=== PATIENT | female | born 1995 | race Asian ===

== ENCOUNTER 2017-06-28 09:59 | Inpatient (IN) | payer OTHER ==
[~2017-06-28] VITALS: Ht 152.4 cm; Wt 43.2 kg
[2017-06-28] MEDS ORDERED: GI COCKTAIL PO STA (11:08)
[2017-06-28] MEDS ORDERED: SUCRALFATE 1 GM TAB PO STA (11:08)
[2017-06-28] MEDS ORDERED: ONDANSETRON INJ 2 MG/ML 2 ML VIAL IV STA (11:08)
[2017-06-28] MEDS ORDERED: FAMOTIDINE 20 MG TAB PO STA (11:08)
[2017-06-28] MEDS ORDERED: HYDROmorphone INJ 0.5 MG/0.5 ML SYR IV STA ×3 (11:08→15:02)
[2017-06-28] MEDS ORDERED: ALUMINUM/MAGNESIUM SUSP 30 ML UDC ONE (11:20)
[2017-06-28] MEDS ORDERED: LIDOCAINE HCL 2% VISC SOLN 20 ML UDC ONE (11:20)
[2017-06-28 11:43] LABS: BASO % 0.1 %; BASO ABS # 0.02 K/uL (0-0.2); HEMOGLOBIN 14.8 g/dL (12.0-16.0); IG# 0.08 K/uL (0.00-0.02); LYMPH % 2.8 %; LYMPH ABS # 0.56 K/uL (1.2-3.4); MEAN CELL VOLUME 91.5 fL (80-100); MEAN CORPUSCULAR HEMOGLOBIN 32.2 pg (25-34); MEAN CORPUSCULAR HGB CONC 35.2 g/dl (32-36); MEAN PLATELET VOLUME 8.6 fL (7.4-10.4); MONO % 3.7 %; MONO ABS # 0.73 K/uL (0.11-0.59); NEUT ABS # 18.33 K/uL (1.4-6.5); PLATELET COUNT 399 K/uL (130-400); RED CELL DISTRIBUTION WIDTH CV 12.1 % (11.5-14.5); RED CELL DISTRIBUTION WIDTH SD 40.5 fL (36.4-46.3); WHITE BLOOD COUNT 19.72 K/uL (4.8-10.8)
--- NOTE | 2017-06-28 11:53 | EMERGENCY ROOM VISIT NOTE ---
History Report prepared by Veronica: Irma Otero Under the Supervision of: Dr. Ge Marmolejo M.D. First contact with patient: 11:01 Chief Complaint: VOMITING Stated Complaint: VOMITING, STOMACHACHE Nursing Triage Summary: Vomiting since 0300 this Am. History of Present Illness The patient is a 21 year old female who presents to the Emergency Room with complaints of worsening upper quadrant abdominal pain that began at 0300 today, almost 8 hours ago. The patient states that she has been nauseous and vomiting, noting there was no blood in her vomit. She denies having diarrhea or any chance of or having attained a tampon. The patient reports that she is currently on her menstrual period. Source of History: patient Onset: 0300, almost 8 hours ago Position: abdomen (upper quadrant ) Quality: other (upper quadrant abdominal pain) Timing: worsening Associated Symptoms: + nausea, + vomiting Review of Systems See HPI for pertinent positives & negatives. A total of 10 systems reviewed and were otherwise negative. Past Medical & Surgical Medical Problems: (1) No Known Active Medical Problems (2) Post-op pain Family History Patient reports no known family medical history. No pertinent family history. Social History Smoking Status: Never Smoker Smokeless Tobacco Use: No Alcohol Use: none Drug Use: none Marital Status: single Housing Status: lives with roommate Occupation Status: student Current/Historical Medications No Active Prescriptions or Reported Meds Allergies Coded Allergies: Shellfish (Unverified Allergy, Unknown, , 06/28/17) Physical Exam Vital Signs Date Time Temp Pulse Resp B/P (MAP) Pulse Ox O2 Delivery O2 Flow Rate FiO2 06/28/17 17:05 36.7 95 16 105/67 (80) 100 Room Air 06/28/17 17:02 36.9 88 20 112/69 99 06/28/17 16:40 112/69 06/28/17 16:35 88 20 99 06/28/17 16:05 101 14 96 06/28/17 15:49 106/69 06/28/17 15:05 69 16 99 06/28/17 14:40 97/57 06/28/17 14:35 77 17 100 06/28/17 14:05 69 12 99 06/28/17 14:00 74 21 99 06/28/17 13:30 69 13 97 06/28/17 13:17 86/60 06/28/17 13:00 73 16 99 06/28/17 12:53 69 06/28/17 12:19 70 16 102/64 100 Room Air 06/28/17 10:15 36.9 72 20 88/59 100 Room Air Physical Exam GENERAL: Patient is a healthy-appearing well-nourished female HEAD: Normocephalic atraumatic EYES: Ocular movements intact pupils equal and react to light OROPHARYNX mucous membranes are moist no exudates present no erythema or edema present NECK: Supple no nuchal rigidity CHEST: Good equal expansion LUNGS: Clear and equal to auscultation CARDIAC: Normal S1 and S2 ABDOMEN: Tender in epigastric area, soft, no guarding BACK: No CVA tenderness EXTREMITIES: No pain upon palpation normal muscle strength in all groups no clubbing cyanosis or edema NEURO: Patient is following commands and answering questions appropriately. Alert and oriented x3 Cranial Nerves 2-12 grossly intact Medical Decision & Procedures ER Provider Diagnostic Interpretation: Radiology results as stated below per my review and radiologist interpretation: ABDOMEN LIMITED (US) CLINICAL HISTORY: 21 years-old Female presenting with Pt c/o RUQ abd pain . TECHNIQUE: Real-time grayscale and limited color Doppler ultrasound imaging of the abdomen limited to the right upper quadrant was performed. COMPARISON: None. FINDINGS: Pancreas: Visualized portions of the pancreatic head and body normal. Liver: Normal echogenicity and echotexture. No sonographic evidence of hepatic mass. Main portal vein patent with normal directional flow. Biliary: No intrahepatic biliary ductal dilatation. Common bile duct measures up to 3 mm in diameter. Gallbladder: 3 mm hyperechogenic gallbladder polyp near the gallbladder neck, likely cholesterol polyp. No evidence of gallstones, gallbladder wall thickening, gallbladder distention, or pericholecystic fluid or inflammatory change. Right kidney: Normal in appearance. No hydronephrosis. Ascites: None. IMPRESSION: Essentially normal right upper quadrant ultrasound. No cholelithiasis or biliary ductal dilatation. Electronically signed by: Allan Bales M.D. 06/28/2017 12:14 PM Dictated Date/Time: 06/28/2017 12:13 PM ABDOMEN 2VIEW W/PA CHEST RTN CLINICAL HISTORY: 21 years-old Female presenting with pt c/o epigastric pain . TECHNIQUE: PA view of the chest and supine and upright views of the abdomen were obtained. COMPARISON: None. FINDINGS: Cardiomediastinal silhouette normal. Lungs and pleural spaces clear. Nonobstructive bowel gas pattern. Moderate stool burden in the right colon. The gas filled hollow viscera in the epigastrium likely represents the stomach, which demonstrates suggestion of wall thickening. No gross pneumoperitoneum. Allowing for bowel gas and stool, no calcifications to suggest nephrolithiasis. Osseous structures normal. IMPRESSION: 1. No acute cardiopulmonary disease. 2. Suggestion of gastric wall thickening, which could indicate gastritis. 3. No bowel obstruction or free air. 4. Moderate stool burden suggest constipation. Electronically signed by: Allan Bales M.D. 06/28/2017 11:57 AM Dictated Date/Time: 06/28/2017 11:55 AM ABD/PELVIS IV AND ORAL CONT CLINICAL HISTORY: 21 years-old Female presenting with Pt c/o epigastric pain, stomachache, vomiting. TECHNIQUE: Multidetector CT of the abdomen and pelvis was performed after the administration of oral and intravenous contrast. IV contrast: 115 mL of Optiray 320. A dose lowering technique was used consistent with the principles of ALARA (as low as reasonably achievable). COMPARISON: Plain radiographs performed earlier the same day. CT DOSE (mGy.cm): The estimated cumulative dose is 365.18 mGy.cm. FINDINGS: [employer] topogram: Unremarkable. Lung bases: Minimal basilar opacities, likely atelectasis. Normal heart size. No pericardial or pleural effusion. Liver: Normal morphology. No liver lesion. Patent hepatic vasculature. Biliary: No intrahepatic or extrahepatic biliary ductal dilatation. Normal gallbladder. Pancreas: Normal. Spleen: Normal. Adrenal glands: Normal. Kidneys and ureters: Normal. No hydronephrosis. Ureters poorly visualized secondary to the paucity of intra-abdominal fat. Bladder: Mild circumferential bladder wall thickening. Pelvic organs: Vagina contains fluid. Normal uterus. Normal ovaries. Bowel: Significantly distended appendix measuring 10 mm in diameter and extending distally to the right adnexa. The base is nondistended (series 3 image 291 no opacification of the appendix. No bowel obstruction. Peritoneal cavity: No free fluid or intraperitoneal gas. No periappendiceal fluid collection or gas. Lymph nodes: No enlarged lymph nodes in the abdomen or pelvis. Vasculature: Aorta and IVC patent and normal in caliber. Abdominal wall: Normal. Musculoskeletal: Normal. IMPRESSION: 1. Findings consistent with acute uncomplicated appendicitis. No evidence of abscess or perforation. The report will be called/faxed according to standard departmental protocol. Electronically signed by: Allan Bales M.D. 06/28/2017 3:51 PM Dictated Date/Time: 06/28/2017 3:46 PM Laboratory Results 06/28/17 11:28 Test 06/28/17 11:20 06/28/17 11:28 Urine Color ORANGE Urine Appearance CLOUDY (CLEAR) Urine pH 7.0 (4.5-7.5) Urine Specific [place] 1.028 (1.000-1.030) Urine Protein 1+ (NEG) Urine Glucose (UA) NEG (NEG) Urine Ketones TRACE (NEG) Urine Occult Blood 3+ (NEG) Urine Nitrite NEG (NEG) Urine Bilirubin NEG (NEG) Urine Urobilinogen NEG (NEG) Urine Leukocyte Esterase SMALL (NEG) Urine WBC (Auto) >30 /hpf (0-5) Urine RBC (Auto) >30 /hpf (0-4) Urine Hyaline Casts (Auto) 10-30 /lpf (0-5) Urine Epithelial Cells (Auto) 10-20 /lpf (0-5) Urine Bacteria (Auto) 1+ (NEG) Urine Test NEG (NEG) Anion Gap 7.0 mmol/L (3-11) Estimated GFR () 112.7 Estimated GFR (Non- 97.3 BUN/Creatinine Ratio 18.4 (10-20) Calcium Level 9.1 mg/dl (8.5-10.1) Total Bilirubin 0.9 mg/dl (0.2-1) Direct Bilirubin 0.2 mg/dl (0-0.2) Aspartate Amino Transf (AST/SGOT) 14 U/L (15-37) Alanine Aminotransferase (ALT/SGPT) 19 U/L (12-78) Alkaline Phosphatase 51 U/L (45-117) Total Protein 9.2 gm/dl (6.4-8.2) Albumin 4.9 gm/dl (3.4-5.0) Lipase 149 U/L (73-393) Hepatitis C Antibody Screen NEG (NEG) Medications Administered Medications (Trade) Dose Ordered Sig/Ted Route Start Time Stop Time Status Last Admin Dose Admin Hydromorphone HCl (Dilaudid Inj) 0.5 mg NOW STAT IV 06/28/17 11:08 06/28/17 11:11 DC 06/28/17 11:36 0.5 MG Ondansetron HCl (Zofran Inj) 4 mg NOW STAT IV 06/28/17 11:08 06/28/17 11:11 DC 06/28/17 11:37 4 MG Miscellaneous Medication (Gi Cocktail) 24 ml NOW STAT PO 06/28/17 11:08 06/28/17 11:11 DC 06/28/17 11:37 24 ML Famotidine (Pepcid Tab) 20 mg NOW STAT PO 06/28/17 11:08 06/28/17 11:11 DC 06/28/17 11:37 20 MG Sucralfate (Carafate Tab) 1 gm NOW STAT PO 06/28/17 11:08 06/28/17 11:11 DC 06/28/17 11:37 1 GM Al Hydroxide/Mg Hydroxide (Maalox Susp) 30 ml STK-MED ONCE .ROUTE 06/28/17 11:20 06/28/17 11:21 DC 06/28/17 11:37 30 ML Lidocaine HCl (Viscous Lidocaine 2% Soln) 20 ml STK-MED ONCE .ROUTE 06/28/17 11:20 06/28/17 11:21 DC 06/28/17 11:38 20 ML Ceftriaxone Sodium (Rocephin Inj) 1 gm NOW STAT IV 06/28/17 12:12 06/28/17 12:14 DC 06/28/17 12:28 1 GM Hydromorphone HCl (Dilaudid Inj) 0.5 mg NOW STAT IV 06/28/17 12:52 06/28/17 12:54 DC 06/28/17 13:11 0.5 MG Metoclopramide HCl (Reglan Inj) 10 mg NOW STAT IV 06/28/17 12:52 06/28/17 12:54 DC 06/28/17 13:11 10 MG Hydromorphone HCl (Dilaudid Inj) 0.5 mg NOW STAT IV 06/28/17 15:02 06/28/17 15:06 DC 06/28/17 15:19 0.5 MG Lactated Ringer's 1,000 ml @ 100 mls/hr Q10H IV 06/28/17 17:30 07/28/17 17:29 06/28/17 22:21 100 MLS/HR Lidocaine/ Epinephrine (Xylocaine/Epine 1% Inj) 20 ml STK-MED ONCE .ROUTE 06/28/17 16:54 06/28/17 16:55 DC 06/28/17 18:20 5 ML ED Course 1103: Past medical records reviewed. The patient was evaluated in room B6. A complete history and physical examination was performed. 1108: Ordered Sucralfate 1gm PO, Famotidine 20mg PO, Zofran Inj 4mg IV, and Dilaudid Inj 0.5mg. 1120: Ordered Lidocaine HCL 20ml and Maalox Susp 30ml. 1212: Ordered Rocephin Inh 1gm IV. 1252: Ordered Reglan Inj 10mg and Dilaudid Inj 0.5mg IV. 1300: Ordered Ioversol 100ml IV. Medical Decision Differential diagnosis: Etiologies such as appendicitis, diverticulitis, PUD, biliary pathology, UTI, pancreatitis, obstruction, mesenteric ischemia, aortic pathology, infections, inflammatory bowel disease, renal colic, as well as others were entertained. This is a 21-year-old female who presents emergency department complaining of pain in the epigastric area. The patient has a very large white blood count cell count 19,000, the patient was given multiple doses of IV Dilaudid and attempt to get her pain under control. She is not . Serial abdominal examinations revealed persistent tenderness in the epigastric region. The patient was sent for an ultrasound of her right upper quadrant as well as x- rays. Her x-rays are concerning for esophagitis for this reason the patient was sent for CAT scan abdomen and pelvis. This revealed the patient have an acute appendicitis. The patient had been started on 1 g of Rocephin therefore I did discuss the case with the surgeon who is kind enough to see the patient. Due to the location of the patient's pain she had been given a GI cocktail Pepcid and Carafate as I initially suspected gastritis due to the fact that the patient was taking a large amount of ibuprofen. Medication Reconcilliation Current Medication List: was personally reviewed by me Blood Pressure Screening Patient's blood pressure: Normal blood pressure Impression Primary Impression: Acute appendicitis Scribe Attestation The scribe's documentation has been prepared under my direction and personally reviewed by me in its entirety. I confirm that the note above accurately reflects all work, treatment, procedures, and medical decision making performed by me. Departure Information Dispostion Home / Self-Care Prescriptions No Active Prescriptions or Reported Meds Referrals No Doctor, Assigned (PCP) Forms HOME CARE DOCUMENTATION FORM, IMPORTANT VISIT INFORMATION Patient Instructions My [facility] Problem Qualifiers Primary Impression: Acute appendicitis Acute appendicitis type: unspecified acute appendicitis type Qualified Codes : K35.80 - Unspecified acute appendicitis
[2017-06-28 11:54] LABS: ALBUMIN 4.9 gm/dl (3.4-5.0); ALT/SGPT 19 U/L (12-78); BLOOD UREA NITROGEN 16 mg/dl (7-18); CALCIUM 9.1 mg/dl (8.5-10.1); CARBON DIOXIDE 25 mmol/L (21-32); CREATININE 0.85 mg/dl (0.60-1.20); GLUCOSE 110 mg/dl (70-99); LIPASE 149 U/L (73-393); POTASSIUM 3.7 mmol/L (3.5-5.1); SODIUM 136 mmol/L (136-145)
[2017-06-28 11:56] LABS: ALKALINE PHOSPHATASE 51 U/L (45-117); AST/SGOT 14 U/L (15-37); TOTAL PROTEIN 9.2 gm/dl (6.4-8.2)
--- NOTE | 2017-06-28 11:58 | DIAGNOSTIC IMAGING REPORT ---
ABDOMEN 2VIEW W/PA CHEST RTN CLINICAL HISTORY: 21 years-old Female presenting with pt c/o epigastric pain . TECHNIQUE: PA view of the chest and supine and upright views of the abdomen were obtained. COMPARISON: None. FINDINGS: Cardiomediastinal silhouette normal. Lungs and pleural spaces clear. Nonobstructive bowel gas pattern. Moderate stool burden in the right colon. The gas filled hollow viscera in the epigastrium likely represents the stomach, which demonstrates suggestion of wall thickening. No gross pneumoperitoneum. Allowing for bowel gas and stool, no calcifications to suggest nephrolithiasis. Osseous structures normal. IMPRESSION: 1. No acute cardiopulmonary disease. 2. Suggestion of gastric wall thickening, which could indicate gastritis. 3. No bowel obstruction or free air. 4. Moderate stool burden suggest constipation. Electronically signed by: Allan Bales M.D. 06/28/2017 11:57 AM Dictated Date/Time: 06/28/2017 11:55 AM
[2017-06-28] MEDS ORDERED: CEFTRIAXONE SOD INJ 1 GM ADDVIAL IV STA (12:12)
--- NOTE | 2017-06-28 12:15 | DIAGNOSTIC IMAGING REPORT ---
ABDOMEN LIMITED (US) CLINICAL HISTORY: 21 years-old Female presenting with Pt c/o RUQ abd pain . TECHNIQUE: Real-time grayscale and limited color Doppler ultrasound imaging of the abdomen limited to the right upper quadrant was performed. COMPARISON: None. FINDINGS: Pancreas: Visualized portions of the pancreatic head and body normal. Liver: Normal echogenicity and echotexture. No sonographic evidence of hepatic mass. Main portal vein patent with normal directional flow. Biliary: No intrahepatic biliary ductal dilatation. Common bile duct measures up to 3 mm in diameter. Gallbladder: 3 mm hyperechogenic gallbladder polyp near the gallbladder neck, likely cholesterol polyp. No evidence of gallstones, gallbladder wall thickening, gallbladder distention, or pericholecystic fluid or inflammatory change. Right kidney: Normal in appearance. No hydronephrosis. Ascites: None. IMPRESSION: Essentially normal right upper quadrant ultrasound. No cholelithiasis or biliary ductal dilatation. Electronically signed by: Allan Bales M.D. 06/28/2017 12:14 PM Dictated Date/Time: 06/28/2017 12:13 PM
[2017-06-28] MEDS ORDERED: METOCLOPRAMIDE HCL INJ 5 MG/ML 2 ML VIAL IV STA (12:52)
[2017-06-28] MEDS ORDERED: OPTIRAY 320 IV PRN (13:00)
--- NOTE | 2017-06-28 15:52 | DIAGNOSTIC IMAGING REPORT ---
ABD/PELVIS IV AND ORAL CONT CLINICAL HISTORY: 21 years-old Female presenting with Pt c/o epigastric pain, stomachache, vomiting. TECHNIQUE: Multidetector CT of the abdomen and pelvis was performed after the administration of oral and intravenous contrast. IV contrast: 115 mL of Optiray 320. A dose lowering technique was used consistent with the principles of ALARA (as low as reasonably achievable). COMPARISON: Plain radiographs performed earlier the same day. CT DOSE (mGy.cm): The estimated cumulative dose is 365.18 mGy.cm. FINDINGS: [employer] topogram: Unremarkable. Lung bases: Minimal basilar opacities, likely atelectasis. Normal heart size. No pericardial or pleural effusion. Liver: Normal morphology. No liver lesion. Patent hepatic vasculature. Biliary: No intrahepatic or extrahepatic biliary ductal dilatation. Normal gallbladder. Pancreas: Normal. Spleen: Normal. Adrenal glands: Normal. Kidneys and ureters: Normal. No hydronephrosis. Ureters poorly visualized secondary to the paucity of intra-abdominal fat. Bladder: Mild circumferential bladder wall thickening. Pelvic organs: Vagina contains fluid. Normal uterus. Normal ovaries. Bowel: Significantly distended appendix measuring 10 mm in diameter and extending distally to the right adnexa. The base is nondistended (series 3 image 291 no opacification of the appendix. No bowel obstruction. Peritoneal cavity: No free fluid or intraperitoneal gas. No periappendiceal fluid collection or gas. Lymph nodes: No enlarged lymph nodes in the abdomen or pelvis. Vasculature: Aorta and IVC patent and normal in caliber. Abdominal wall: Normal. Musculoskeletal: Normal. IMPRESSION: 1. Findings consistent with acute uncomplicated appendicitis. No evidence of abscess or perforation. The report will be called/faxed according to standard departmental protocol. Electronically signed by: Allan Bales M.D. 06/28/2017 3:51 PM Dictated Date/Time: 06/28/2017 3:46 PM
[2017-06-28] MEDS ORDERED: FENTANYL CITRATE INJ 50 MCG/1 ML 2 ML VIAL IV PRN (16:30)
[2017-06-28] MEDS ORDERED: HYDROmorphone INJ 1 MG/ML SYR IV PRN (16:30)
[2017-06-28] MEDS ORDERED: LABETALOL HCL IV 5 MG/ML 20ML IV PRN (16:30)
[2017-06-28] MEDS ORDERED: MEPERIDINE HCL 25 MG/ML CARP IV PRN (16:30)
[2017-06-28] MEDS ORDERED: ONDANSETRON INJ 2 MG/ML 2 ML VIAL IV PRN ×2 (16:30→18:30)
[2017-06-28] MEDS ORDERED: EpHEDrine SULFATE INJ 50 MG/ML AMP IV PRN (16:30)
[2017-06-28] MEDS ORDERED: ATROPINE SULFATE 0.1 MG/ML 5ML SYR IV PRN (16:30)
--- NOTE | 2017-06-28 16:34 | History & Physical Bridge Note ---
H&P Re-Evaluation Bridge Note: I have examined the patient, reviewed the History & Physical and in the interval since the performance of the History & Physical I have noted the following changes of clinical significance: No changes notedpt examined lab and images reviewed rul tenderness plan lap appy possible open r andc explained to pt family member at bedside
--- NOTE | 2017-06-28 16:37 | History and Physical ---
History & Physical Date & Time of Service: Jun 28, 2017 at 16:29 Chief Complaint: Vomiting, Stomachache Primary Care Physician: [facility] History of Present Illness 21 y/o female with abdominal pain, more epigastric in nature. She felt hot flashes last night when going to bed and woke up at 03:00 with abdominal pain that increased during the morning. She had one episode of vomiting after taking some analgesics at home. She was evaluated for possible cholecystitis, CT has indicated appendicitis. No previous abdominal pain or surgery. Past Medical/Surgical History Medical: no ongoing problems Surgical: none Family History Patient reports no known family medical history. Social History Smoking Status: Never Smoker Smokeless Tobacco Use: No Drug Use: none Marital Status: single Occupational Status: student, other (family in [place]) Allergies Coded Allergies: Shellfish (Unverified Allergy, Unknown, , 06/28/17) Home Medications No Active Prescriptions or Reported Meds Review of Systems Constitutional: + sweats, No fever, No chills Abdomen: + pain, + nausea (after CT prep), + vomiting Physical Exam Vital Signs Date Time Temp Pulse Resp B/P (MAP) Pulse Ox O2 Delivery O2 Flow Rate FiO2 06/28/17 14:00 74 21 99 06/28/17 13:30 69 13 97 06/28/17 13:17 86/60 06/28/17 13:00 73 16 99 06/28/17 12:53 69 06/28/17 12:19 70 16 102/64 100 Room Air 06/28/17 10:15 36.9 72 20 88/59 100 Room Air General Appearance: WD/WN, + mild distress ENT: normal ENT inspection Respiratory/Chest: lungs clear, normal breath sounds Cardiovascular: regular rate, rhythm, no murmur Abdomen/GI: soft, + tenderness (mild RLQ, no guarding, epigastric nontender) Diagnostics Laboratory Results Results Past 24 Hours Test 06/28/17 11:20 06/28/17 11:28 Range/Units Urine Color ORANGE Urine Appearance CLOUDY CLEAR Urine pH 7.0 4.5-7.5 Urine Specific [place] 1.028 1.000-1.030 Urine Protein 1+ NEG Urine Glucose (UA) NEG NEG Urine Ketones TRACE NEG Urine Occult Blood 3+ NEG Urine Nitrite NEG NEG Urine Bilirubin NEG NEG Urine Urobilinogen NEG NEG Urine Leukocyte Esterase SMALL NEG Urine WBC (Auto) >30 0-5 /hpf Urine RBC (Auto) >30 0-4 /hpf Urine Hyaline Casts (Auto) 10-30 0-5 /lpf Urine Epithelial Cells (Auto) 10-20 0-5 /lpf Urine Bacteria (Auto) 1+ NEG Urine Test NEG NEG White Blood Count 19.72 4.8-10.8 K/uL Red Blood Count 4.59 4.2-5.4 M/uL Hemoglobin 14.8 12.0-16.0 g/dL Hematocrit 42.0 37-47 % Mean Corpuscular Volume 91.5 80-100 fL Mean Corpuscular Hemoglobin 32.2 25-34 pg Mean Corpuscular Hemoglobin Concent 35.2 32-36 g/dl Platelet Count 399 130-400 K/uL Mean Platelet Volume 8.6 7.4-10.4 fL Neutrophils (%) (Auto) 93.0 % Lymphocytes (%) (Auto) 2.8 % Monocytes (%) (Auto) 3.7 % Eosinophils (%) (Auto) 0.0 % Basophils (%) (Auto) 0.1 % Neutrophils # (Auto) 18.33 1.4-6.5 K/uL Lymphocytes # (Auto) 0.56 1.2-3.4 K/uL Monocytes # (Auto) 0.73 0.11-0.59 K/uL Eosinophils # (Auto) 0.00 0-0.5 K/uL Basophils # (Auto) 0.02 0-0.2 K/uL RDW Standard Deviation 40.5 36.4-46.3 fL RDW Coefficient of Variation 12.1 11.5-14.5 % Immature Granulocyte % (Auto) 0.4 % Immature Granulocyte # (Auto) 0.08 0.00-0.02 K/uL Sodium Level 136 136-145 mmol/L Potassium Level 3.7 3.5-5.1 mmol/L Chloride Level 104 98-107 mmol/L Carbon Dioxide Level 25 21-32 mmol/L Anion Gap 7.0 3-11 mmol/L Blood Urea Nitrogen 16 7-18 mg/dl Creatinine 0.85 0.60-1.20 mg/dl Estimated GFR () 112.7 Estimated GFR (Non- 97.3 BUN/Creatinine Ratio 18.4 10-20 Random Glucose 110 70-99 mg/dl Calcium Level 9.1 8.5-10.1 mg/dl Total Bilirubin 0.9 0.2-1 mg/dl Direct Bilirubin 0.2 0-0.2 mg/dl Aspartate Amino Transf (AST/SGOT) 14 15-37 U/L Alanine Aminotransferase (ALT/SGPT) 19 12-78 U/L Alkaline Phosphatase 51 45-117 U/L Total Protein 9.2 6.4-8.2 gm/dl Albumin 4.9 3.4-5.0 gm/dl Lipase 149 73-393 U/L Microbiology Results 06/28/17 Urine Culture, Received Pending Diagnostic Radiology ABD/PELVIS IV AND ORAL CONT CLINICAL HISTORY: 21 years-old Female presenting with Pt c/o epigastric pain, stomachache, vomiting. TECHNIQUE: Multidetector CT of the abdomen and pelvis was performed after the administration of oral and intravenous contrast. IV contrast: 115 mL of Optiray 320. A dose lowering technique was used consistent with the principles of ALARA (as low as reasonably achievable). COMPARISON: Plain radiographs performed earlier the same day. CT DOSE (mGy.cm): The estimated cumulative dose is 365.18 mGy.cm. FINDINGS: [employer] topogram: Unremarkable. Lung bases: Minimal basilar opacities, likely atelectasis. Normal heart size. No pericardial or pleural effusion. Liver: Normal morphology. No liver lesion. Patent hepatic vasculature. Biliary: No intrahepatic or extrahepatic biliary ductal dilatation. Normal gallbladder. Pancreas: Normal. Spleen: Normal. Adrenal glands: Normal. Kidneys and ureters: Normal. No hydronephrosis. Ureters poorly visualized secondary to the paucity of intra-abdominal fat. Bladder: Mild circumferential bladder wall thickening. Pelvic organs: Vagina contains fluid. Normal uterus. Normal ovaries. Bowel: Significantly distended appendix measuring 10 mm in diameter and extending distally to the right adnexa. The base is nondistended (series 3 image 291 no opacification of the appendix. No bowel obstruction. Peritoneal cavity: No free fluid or intraperitoneal gas. No periappendiceal fluid collection or gas. Lymph nodes: No enlarged lymph nodes in the abdomen or pelvis. Vasculature: Aorta and IVC patent and normal in caliber. Abdominal wall: Normal. Musculoskeletal: Normal. IMPRESSION: 1. Findings consistent with acute uncomplicated appendicitis. No evidence of abscess or perforation. Impression Assessment and Plan Acute appendicitis Plan for laparoscopic appendectomy this evening by Dr. Zhang. He has evaluated her in the ED. She has been NPO since 7pm last night. Had Rocephin 1 gm at 12:30.
[2017-06-28] MEDS ORDERED: MIDAZOLAM HCL 1 MG/ML 2ML VIAL ONE (16:52)
[2017-06-28] MEDS ORDERED: FENTANYL CITRATE INJ 50 MCG/1 ML 2 ML VIAL ONE ×2 (16:52→17:29)
[2017-06-28] MEDS ORDERED: LIDOCAINE/EPINEPHRINE 1% 20 ML VIAL ONE (16:54)
[2017-06-28] MEDS ORDERED: ACETAMINOPHEN 1000 MG/100 ML IV IV ONE (17:01)
[2017-06-28] MEDS ORDERED: PROPOFOL IV EMULSION 10 MG/ML 20 ML VIAL IV ONE (17:36)
[2017-06-28] MEDS ORDERED: LIDOCAINE HCL 2% 2 ML VIAL (20MG/ML) ONE (17:36)
[2017-06-28] MEDS ORDERED: ROCURONIUM BROMIDE 10 MG/ML 5 ML VIAL IV ONE (17:36)
[2017-06-28] MEDS ORDERED: ONDANSETRON INJ 2 MG/ML 2 ML VIAL ONE (17:37)
[2017-06-28] MEDS ORDERED: GLYCOPYRROLATE INJ 0.2 MG/ML VIAL ONE (17:37)
[2017-06-28] MEDS ORDERED: PHENYLEPHRINE HCL INJ 10 MG/ML VIAL ONE (17:37)
[2017-06-28] MEDS ORDERED: DEXAMETHASONE SOD INJ 4 MG/ML VIAL ONE (17:37)
[2017-06-28] MEDS ORDERED: NEOSTIGMINE METHYLSULFATE 5 MG/5 ML SYR ONE (17:37)
--- NOTE | 2017-06-28 18:22 | [facility] Post Operative Brief Note ---
Immediate Operative Summary Operative Date Jun 28, 2017. Pre-Operative Diagnosis Acute Appendicitis Post-Operative Diagnosis Acute Appendicitis non ruptured Procedure(s) Performed Laparoscopic Appendectomy Surgeon Dr. Zhang Traffic Control Operator Surgeon(s) NONE Estimated Blood Loss 15 ML Findings See Below acute non ruptured appendicitis Specimens Permanent Specimen: A: Appendix Drains 15 jose pelvis Anesthesia Type General
[2017-06-28] MEDS ORDERED: LACTATED RINGER'S 1000ML 1,000 ML IV SCH (18:30)
--- NOTE | 2017-06-28 19:10 | Anesthesiology Progress Note ---
Anesthesia Post Op Note Date & Time Jun 28, 2017 at 19:10 Vital Signs Pain Intensity: 1 Vital Signs Past 12 Hours Date Time Temp Pulse Resp B/P (MAP) Pulse Ox O2 Delivery O2 Flow Rate FiO2 06/28/17 18:33 36.5 69 14 114/55 100 Oxymask 6 06/28/17 17:05 36.7 95 16 105/67 (80) 100 Room Air 06/28/17 17:02 36.9 88 20 112/69 99 06/28/17 16:40 112/69 06/28/17 16:35 88 20 99 06/28/17 16:05 101 14 96 06/28/17 15:49 106/69 06/28/17 15:05 69 16 99 06/28/17 14:40 97/57 06/28/17 14:35 77 17 100 06/28/17 14:05 69 12 99 06/28/17 14:00 74 21 99 06/28/17 13:30 69 13 97 06/28/17 13:17 86/60 06/28/17 13:00 73 16 99 06/28/17 12:53 69 06/28/17 12:19 70 16 102/64 100 Room Air 06/28/17 10:15 36.9 72 20 88/59 100 Room Air Notes Mental Status: alert / awake / arousable, participated in evaluation Pt Amnestic to Procedure: Yes Nausea / Vomiting: adequately controlled Pain: adequately controlled Airway Patency, RR, SpO2: stable & adequate BP & HR: stable & adequate Hydration State: stable & adequate Anesthetic Complications: no major complications apparent
[2017-06-28] MEDS ORDERED: IV FLUIDS COMPLETED PRN (19:30)
--- NOTE | 2017-06-28 19:35 | OPERATIVE REPORT ---
DATE OF OPERATION: 06/28/2017 SURGEON: Dr. Zhang. PREOPERATIVE DIAGNOSIS: Acute appendicitis. POSTOPERATIVE DIAGNOSIS: Acute nonruptured appendix. PROCEDURE: Laparoscopic appendectomy. SUMMARY: The patient was brought into the operating room theater. The abdomen was prepped with Hibiclens and properly draped. The patient has a very small anatomy. A small incision was made supraumbilically, sufficient enough to place a Veress needle. CO2 insufflated, followed by a 5 mm trocar. Point of entry inspected and no injury identified. The abdomen was inspected. Under direct visualization, we placed a 5 mm right upper quadrant port with preemptive local analgesia with 1% Xylocaine. We then were able to elevate the cecum and found the appendix was down toward the pelvic brim. It was strictly adherent to the terminal ileum on the undersurface with some lateral attachments just along the vessels in the gutter. At this point, I converted the umbilical port to 11 mm under direct visualization and placed a 5 mm port in the left lower quadrant. We did see some oozing from the entry site of the 11 mm port throughout the procedure and actually it was more of a nuisance as it came down and went to the left gutter, but by the time we were done, it seemed like there was no active bleeding. Once we closed the umbilical opening at the end, we would see that it was just a little ooze along the fascia and we cauterized. Having said that, at this point, attention was turned to the appendix where we could see the base of the appendix, it was hard to elevate the whole appendix which was markedly dilated, not ischemic looking but quite tense, had significant fine adhesions mostly down to the pelvic brim and also to the undersurface of the terminal ileum. Everything that we seemed to touch on this patient seemed to ooze a little bit, therefore, we used electrocautery to elevate these fine adhesive bands from the appendix that had a pigtail down toward the pelvic inlet. We elevated it up and the first thing we did was create a window between the cecum and the base of the appendix, sufficiently enough that we were able to use a purple WARREN slightly and free this up from the cecum. We then continued our dissection, elevated the appendix off the terminal ileum. Once we had sufficient mobilization of few larger structures which were mostly probably collaterals of the appendiceal artery, we clipped with 5 mm clip mangle catcher, but then we used another load of purple WARREN to completely divide the mesoappendix. The appendix was then placed in an Endopouch and taken out intact through the umbilical port. Of note, when we were maneuvering the appendix, I did see some drainage from the appendix itself that we would irrigate at the end and then I would like to put a drain down in the pelvis. Our attention was then to irrigate the pelvis and the abdomen completely. The patient was placed in reverse Trendelenburg position and suctioned out copiously. After performing this, I placed a 15 Jameel drain through the left lower quadrant entry site, it came out through right upper quadrant entry side, and under direct visualization, we put it down toward the appendiceal area and down to the pelvic area and attached to the skin edge with 2-0 nylon suture. The area of the umbilical site was inspected prior to removing the drain and there seemed to be no significant oozing at this time. We closed the wound with fascial stitch in the umbilical area using interrupted 0 Vicryl suture x3, 4-0 Monocryl and Steri-Strips applied. The procedure was tolerated well by the patient and was taken to recovery in good position. Estimated blood loss approximately 15 mL. I attest to the content of the Intraoperative Record and any orders documented therein. Any exception s are noted below.
[2017-06-28 19:53] VITALS: BP 98/65; PULSE 71; TEMP 36.4; Ht 152.4 cm; Wt 43.2 kg
[2017-06-28 20:15] VITALS: BP 104/67; PULSE 78; TEMP 37; O2SAT 96
[2017-06-28 22:15] VITALS: BP 93/62; PULSE 83; TEMP 37.2; O2SAT 91
[2017-06-28] MEDS: LACTATED RINGER'S 1000ML 1,000 ML IV SCH (22:21)
[2017-06-28] MEDS: OXYCODONE/ACETAMINOPHEN 5-325 TAB PO PRN (22:22)
[2017-06-28 23:30] VITALS: BP 94/56; PULSE 78; TEMP 37.4; O2SAT 97
[2017-06-28] MEDS: MoRPHine SULFATE 2 MG/ML CARP IV PRN (23:52)
[2017-06-29] VITALS (8 sets, daily range): BP systolic 83–95; BP diastolic 46–60; PULSE 74–105; TEMP 37–37.4; O2SAT 96–99
[2017-06-29] MEDS: OXYCODONE/ACETAMINOPHEN 5-325 TAB PO PRN ×3 (05:37→15:31)
[2017-06-29 06:14] LABS: HEMATOCRIT 28.8 % (37-47); HEMOGLOBIN 9.9 g/dL (12.0-16.0); IG# 0.01 K/uL (0.00-0.02); LYMPH % 7.8 %; LYMPH ABS # 1.01 K/uL (1.2-3.4); MEAN CELL VOLUME 91.7 fL (80-100); MEAN CORPUSCULAR HEMOGLOBIN 31.5 pg (25-34); MEAN CORPUSCULAR HGB CONC 34.4 g/dl (32-36); MEAN PLATELET VOLUME 8.4 fL (7.4-10.4); MONO % 8.4 %; MONO ABS # 1.08 K/uL (0.11-0.59); NEUT % 83.7 %; NEUT ABS # 10.81 K/uL (1.4-6.5); PLATELET COUNT 317 K/uL (130-400); RED CELL DISTRIBUTION WIDTH CV 12.4 % (11.5-14.5); RED CELL DISTRIBUTION WIDTH SD 41.4 fL (36.4-46.3); WHITE BLOOD COUNT 12.91 K/uL (4.8-10.8)
[2017-06-29] MEDS: MoRPHine SULFATE 2 MG/ML CARP IV PRN (06:42)
[2017-06-29] MEDS: LACTATED RINGER'S 1000ML 1,000 ML IV SCH ×2 (08:04→21:08)
[2017-06-29] MEDS ORDERED: AMOX875T PO (08:36)
[2017-06-29] MEDS ORDERED: OXYC-57 PO (08:36)
--- NOTE | 2017-06-29 08:42 | Discharge Instructions ---
Discharge Instructions Date of Service Jun 29, 2017. Admission Reason for Admission: Post-Op Pain Discharge Discharge Diagnosis / Problem: Post-Op Pain Discharge Goals Goal(s): Decrease discomfort, Improve function Activity Recommendations Activity Limitations: as noted below Lifting Limitations: no more than 10 pounds Exercise/Sports Limitations: until after follow-up appointment May Resume Sexual Activity: after follow-up appointment Shower/Bathe: no limitations Driving or Machine Use: resume 1 day after discharge . Instructions / Follow-Up Instructions / Follow-Up Please call the General Surgery Clinic to have your drain removed next week. [facility] Surgery Clinic located at [address] [place], [place] [address]Howie Amenia, ERICKA. Please call the clinic at [phone] to make this appointment. Please call the office with any questions or concerns. Current Hospital Diet Patient's current hospital diet: Regular Diet Discharge Diet Recommended Diet: Regular Diet Procedures Procedures Performed: Laparoscopic Appendectomy Pending Studies Studies pending at discharge: yes List of pending studies: Pathology report. Medical Emergencies . Who to Call and When: Medical Emergencies: If at any time you feel your situation is an emergency, please call 911 immediately. . Non-Emergent Contact Non-Emergency issues call your: Primary Care Provider, Surgeon Call Non-Emergent contact if: temperature is above 101.5, your pain is not controlled, wound has increased drainage, wound has increased redness . "Provider Documentation" section prepared by Sally Garza. . VTE Core Measure Inpt VTE Proph given/why not?: SCD's
[2017-06-29 08:48] LABS: INR 1.1 (0.9-1.1); PTT PATIENT 28.1 SECONDS (21.0-31.0)
--- NOTE | 2017-06-29 09:05 | SURGERY PROGRESS NOTE ---
DATE: 06/29/2017 This young girl was less than 24 hours postoperative laparoscopic appendectomy for acute suppurative appendicitis, non-ruptured. The patient at the time of surgery had what I thought more bleeding than necessary and the incision tend to be oozing more and we were aware of this at the time of surgery. When we were finished, we checked all the port sites and there were no active bleeding. When we were closing the abdominal incision, there was a speck of bleeding noticed at the fascia where the trocar had been and we could see it and we cauterized it. The patient apparently had been doing okay. The vitals, when she came into the Emergency Room, her blood pressure was 88/59, heart rate was 72. She is normally a low pressure, but this morning, her blood pressure had been in the 90s to high 80s. She had a Jameel drain that we placed at the time of the surgery and it was drained at approximately 6:00 this morning and had about 110 mL. When we saw her this morning, there seemed to be old blood in the chamber but the patient had just got out of the bathroom and it was another 60 mL. So she had 170 mL since surgery. The patient's laboratory this morning showed her hemoglobin of 9.9, white count 12.92. The coagulation I ordered on her even though she does not have a tendency to bleed and has not taken any medicines, these are pending. Her abdomen is completely benign. She has been up and around and does not feel lightheaded. At this point, we will continue her IV. I talked to the family who is at the bedside. We will recheck her hemoglobin at approximately 2:00 in the afternoon. If she is stable and there is no further bleeding, we will be able to discharge her. She had 1 gram of Rocephin at the time she came into the Emergency Room yesterday that will be out this afternoon. If she is discharged, I would like to keep her on some Augmentin 150 b.i.d. for approximately 5 days. Since we really did not had any rupture of the appendix though as we were holding the appendix there was some oozing out of the lumen itself at the time of the surgery and that is of one of the reasons we left the drain in.
[2017-06-29 14:02] LABS: BASO % 0.2 %; BASO ABS # 0.02 K/uL (0-0.2); EOS % 0.1 %; EOS ABS # 0.01 K/uL (0-0.5); HEMATOCRIT 26.6 % (37-47); IG# 0.03 K/uL (0.00-0.02); LYMPH % 17.6 %; LYMPH ABS # 1.79 K/uL (1.2-3.4); MEAN CORPUSCULAR HEMOGLOBIN 31.1 pg (25-34); MEAN CORPUSCULAR HGB CONC 33.8 g/dl (32-36); MEAN PLATELET VOLUME 8.3 fL (7.4-10.4); MONO % 12.2 %; MONO ABS # 1.24 K/uL (0.11-0.59); NEUT % 69.6 %; NEUT ABS # 7.09 K/uL (1.4-6.5); PLATELET COUNT 298 K/uL (130-400); RED CELL DISTRIBUTION WIDTH CV 12.3 % (11.5-14.5); RED CELL DISTRIBUTION WIDTH SD 41.4 fL (36.4-46.3); WHITE BLOOD COUNT 10.18 K/uL (4.8-10.8)
--- NOTE | 2017-06-29 17:59 | SURGERY PROGRESS NOTE ---
DATE: 06/29/2017 Room #363. She who is fairly comfortable. She is complaining of some abdominal pain which is mostly around the umbilical area and the tape I removed, and that seems to be some subsiding. Her last vitals showed a temperature of 37, pulse 90, respirations 18, blood pressure 88/53. She has been up and around. She does not feel dizzy. The Jameel drainage was emptied at 1;30 for 30 mL, as of 5:00 now there is hardly any drainage in the tubing. Her last hemoglobin showed it to be 9, WBC is down to 10.18. Her BUN was 16, creatinine 0.85 when she first came in yesterday. I suspect part of the drop in her hemoglobin may be associated with rehydration, but having said that, I think we will keep her here tonight, repeat another hemoglobin at 10:00. This was discussed with patient and also the family member who are present at this time. FRANK
[2017-06-29] MEDS ORDERED: NURSING VERBAL MED ORDER ONE (18:15)
[2017-06-29] MEDS: AMOXICILLIN/CLAVULANATE TAB 875 MG TAB PO SCH (18:15)
[2017-06-29] MEDS: TRAMADOL HCL 50 MG TAB PO PRN (18:28)
[2017-06-29 22:15] LABS: BASO % 0.2 %; BASO ABS # 0.02 K/uL (0-0.2); EOS % 0.1 %; EOS ABS # 0.01 K/uL (0-0.5); HEMATOCRIT 25.5 % (37-47); HEMOGLOBIN 8.6 g/dL (12.0-16.0); IG# 0.02 K/uL (0.00-0.02); LYMPH % 24.2 %; LYMPH ABS # 2.26 K/uL (1.2-3.4); MEAN CELL VOLUME 93.4 fL (80-100); MEAN CORPUSCULAR HEMOGLOBIN 31.5 pg (25-34); MEAN CORPUSCULAR HGB CONC 33.7 g/dl (32-36); MEAN PLATELET VOLUME 8.1 fL (7.4-10.4); MONO % 12.7 %; MONO ABS # 1.19 K/uL (0.11-0.59); NEUT % 62.6 %; NEUT ABS # 5.85 K/uL (1.4-6.5); PLATELET COUNT 259 K/uL (130-400); RED CELL DISTRIBUTION WIDTH CV 12.6 % (11.5-14.5); RED CELL DISTRIBUTION WIDTH SD 43.1 fL (36.4-46.3); WHITE BLOOD COUNT 9.35 K/uL (4.8-10.8)
[2017-06-30] MEDS: OXYCODONE/ACETAMINOPHEN 5-325 TAB PO PRN ×5 (04:06→21:54)
[2017-06-30 06:50] LABS: BASO % 0.3 %; BASO ABS # 0.03 K/uL (0-0.2); EOS % 0.3 %; EOS ABS # 0.03 K/uL (0-0.5); HEMOGLOBIN 8.1 g/dL (12.0-16.0); IG# 0.02 K/uL (0.00-0.02); MEAN CORPUSCULAR HEMOGLOBIN 31.4 pg (25-34); MEAN CORPUSCULAR HGB CONC 33.8 g/dl (32-36); MEAN PLATELET VOLUME 8.1 fL (7.4-10.4); MONO % 11.4 %; MONO ABS # 1.01 K/uL (0.11-0.59); NEUT % 61.8 %; NEUT ABS # 5.44 K/uL (1.4-6.5); PLATELET COUNT 242 K/uL (130-400); RED CELL DISTRIBUTION WIDTH CV 12.7 % (11.5-14.5); RED CELL DISTRIBUTION WIDTH SD 43.3 fL (36.4-46.3); WHITE BLOOD COUNT 8.83 K/uL (4.8-10.8)
[2017-06-30 07:13] VITALS: BP 95/62; PULSE 105; TEMP 36.8; O2SAT 96
[2017-06-30] MEDS: AMOXICILLIN/CLAVULANATE TAB 875 MG TAB PO SCH ×2 (09:22→17:17)
--- NOTE | 2017-06-30 10:00 | Surgery Progress Note ---
Surgery Progress Note Date of Service Jun 30, 2017. Subjective Post OP Day: 2 + pain controlled, No nausea, No vomiting No new concerns or complaints overnight. Objective Vital Signs: Date Time Temp Pulse Resp B/P (MAP) Pulse Ox O2 Delivery O2 Flow Rate FiO2 06/30/17 07:13 36.8 105 16 95/62 (73) 96 Room Air 06/29/17 23:40 96 Room Air 06/29/17 22:50 37.4 105 16 91/54 (66) 96 Room Air 06/29/17 17:30 84 95/60 (72) 06/29/17 15:35 37.0 90 18 88/53 (65) 98 Room Air 06/29/17 15:30 Room Air 06/29/17 12:00 37.1 90 16 95/58 (70) 99 Room Air Physical Exam: COLTON drainage (480cc yesterday, 5cc today- becoming more serosang drainage. ) General Appearance: WD/WN, no apparent distress Head: normocephalic, atraumatic Abdomen: soft, + tenderness (at incision sites. Drain in place. ) Laboratory Results: Results Past 24 Hours Test 06/29/17 13:51 06/29/17 22:08 06/30/17 06:13 Range/Units White Blood Count 10.18 9.35 8.83 4.8-10.8 K/uL Red Blood Count 2.89 2.73 2.58 4.2-5.4 M/uL Hemoglobin 9.0 8.6 8.1 12.0-16.0 g/dL Hematocrit 26.6 25.5 24.0 37-47 % Mean Corpuscular Volume 92.0 93.4 93.0 80-100 fL Mean Corpuscular Hemoglobin 31.1 31.5 31.4 25-34 pg Mean Corpuscular Hemoglobin Concent 33.8 33.7 33.8 32-36 g/dl Platelet Count 298 259 242 130-400 K/uL Mean Platelet Volume 8.3 8.1 8.1 7.4-10.4 fL Neutrophils (%) (Auto) 69.6 62.6 61.8 % Lymphocytes (%) (Auto) 17.6 24.2 26.0 % Monocytes (%) (Auto) 12.2 12.7 11.4 % Eosinophils (%) (Auto) 0.1 0.1 0.3 % Basophils (%) (Auto) 0.2 0.2 0.3 % Neutrophils # (Auto) 7.09 5.85 5.44 1.4-6.5 K/uL Lymphocytes # (Auto) 1.79 2.26 2.30 1.2-3.4 K/uL Monocytes # (Auto) 1.24 1.19 1.01 0.11-0.59 K/uL Eosinophils # (Auto) 0.01 0.01 0.03 0-0.5 K/uL Basophils # (Auto) 0.02 0.02 0.03 0-0.2 K/uL RDW Standard Deviation 41.4 43.1 43.3 36.4-46.3 fL RDW Coefficient of Variation 12.3 12.6 12.7 11.5-14.5 % Immature Granulocyte % (Auto) 0.3 0.2 0.2 % Immature Granulocyte # (Auto) 0.03 0.02 0.02 0.00-0.02 K/uL Anisocytosis PRESENT Red Blood Cell Morphology Unremarkable Assessment & Plan 21 year-old female 2 days s/p Laparoscopic Appendectomy. Patient seen and examined by Dr. Zhang Tolerating diet, pain controlled. Patient ambulating. Morning labs reviewed. H and H dropped overnight, but drain output now seems to have slowed significantly. Patient informed Dr. Zhang that she was going to travel to [place]- recommend that patient stay an additional day in hospital. Will repeat CBC at 2PM this afternoon. Patient and family at bedside understand plan and are in agreement. 2PM CBC results returned- Hgb and Hct improving.
[2017-06-30 15:01] LABS: BASO % 0.3 %; BASO ABS # 0.03 K/uL (0-0.2); EOS % 0.4 %; EOS ABS # 0.04 K/uL (0-0.5); HEMATOCRIT 25.4 % (37-47); HEMOGLOBIN 8.5 g/dL (12.0-16.0); IG# 0.03 K/uL (0.00-0.02); LYMPH % 16.9 %; LYMPH ABS # 1.68 K/uL (1.2-3.4); MEAN CELL VOLUME 93.4 fL (80-100); MEAN CORPUSCULAR HEMOGLOBIN 31.3 pg (25-34); MEAN CORPUSCULAR HGB CONC 33.5 g/dl (32-36); MEAN PLATELET VOLUME 8.3 fL (7.4-10.4); MONO ABS # 1.29 K/uL (0.11-0.59); NEUT % 69.1 %; NEUT ABS # 6.85 K/uL (1.4-6.5); PLATELET COUNT 259 K/uL (130-400); RED CELL DISTRIBUTION WIDTH CV 12.5 % (11.5-14.5); RED CELL DISTRIBUTION WIDTH SD 42.6 fL (36.4-46.3); WHITE BLOOD COUNT 9.92 K/uL (4.8-10.8)
[2017-06-30] MEDS: LACTATED RINGER'S 1000ML 1,000 ML IV SCH (15:50)
[2017-06-30 15:54] VITALS: TEMP 37.2
[2017-06-30 15:55] VITALS: BP 95/63; PULSE 102; O2SAT 98
[2017-06-30] MEDS: TRAMADOL HCL 50 MG TAB PO PRN ×2 (17:16→23:33)
[2017-06-30 21:13] VITALS: PULSE 96
[2017-06-30 22:45] VITALS: BP 98/66; PULSE 96; TEMP 38.3; O2SAT 95
[2017-06-30 22:49] VITALS: TEMP 37.1
[2017-07-01] VITALS (8 sets, daily range): BP systolic 94–100; BP diastolic 63–67; PULSE 63–101; TEMP 36.9–38.4; O2SAT 95–97
[2017-07-01] MEDS ORDERED: ACETAMINOPHEN 500 MG TAB PO STA (00:53)
[2017-07-01] MEDS: TRAMADOL HCL 50 MG TAB PO PRN ×2 (06:21→13:14)
[2017-07-01] MEDS ORDERED: PIPERACILL/TAZOBAC CONSULT ACTIVE PRN (06:30)
[2017-07-01] MEDS ORDERED: PIPERACILL/TAZOBAC IV 4.5 GM in DEXTROSE 5% 100ML IV STA (06:31)
--- NOTE | 2017-07-01 06:43 | SURGERY PROGRESS NOTE ---
DATE: 07/01/2017 SUBJECTIVE: This young lady is approximately third postoperative day status post laparoscopic appendectomy. She appears to have a bleed that at time of the surgery, she had generalized oozing from just skin incision continued postoperatively, we actually been following regularly. Her hemoglobin, it seemed to have stabilized about 8-1/2, she did not require transfusion, but within the last 24 hours she has been spiking temperatures. She felt that her belly is worse than it had been, although she is tolerating a regular diet. She has not moved her bowels. Her last temperature was 37 orally, but during the night, it was 38 and 37.6. The abdomen is hard to evaluate. She guards significantly but there is no overlying localized tenderness, just generalized guarding. The Jameel drainage has been emptied, it is slightly bloody output of 65 yesterday, overnight it was just 20 mL. The laboratories pending this morning. The patient feels like she is lightheaded at this time when she gets up, therefore we will reassess what her hemoglobin this morning, I will just continue her IV fluid and increase it, but I would like to get a CT scan of the abdomen and pelvis since she did have a pretty significant appendicitis that it was not ruptured, but at the time of the surgery as we were taken out the appendix, she had some little drainage from the appendix itself and she had a postop bleed, make sure she does not develop any abscess. FRANK
[2017-07-01 07:24] LABS: BASO % 0.2 %; BASO ABS # 0.02 K/uL (0-0.2); EOS % 0.7 %; EOS ABS # 0.07 K/uL (0-0.5); HEMATOCRIT 25.1 % (37-47); HEMOGLOBIN 8.5 g/dL (12.0-16.0); IG# 0.03 K/uL (0.00-0.02); LYMPH % 15.4 %; LYMPH ABS # 1.52 K/uL (1.2-3.4); MEAN CORPUSCULAR HEMOGLOBIN 31.5 pg (25-34); MEAN CORPUSCULAR HGB CONC 33.9 g/dl (32-36); MEAN PLATELET VOLUME 8.1 fL (7.4-10.4); MONO % 13.2 %; NEUT % 70.2 %; NEUT ABS # 6.92 K/uL (1.4-6.5); PLATELET COUNT 284 K/uL (130-400); RED CELL DISTRIBUTION WIDTH CV 12.4 % (11.5-14.5); RED CELL DISTRIBUTION WIDTH SD 42.5 fL (36.4-46.3); WHITE BLOOD COUNT 9.86 K/uL (4.8-10.8)
[2017-07-01 07:56] LABS: BLOOD UREA NITROGEN 9 mg/dl (7-18); CALCIUM 7.9 mg/dl (8.5-10.1); CARBON DIOXIDE 24 mmol/L (21-32); CREATININE 0.57 mg/dl (0.60-1.20); GLUCOSE 91 mg/dl (70-99); POTASSIUM 3.6 mmol/L (3.5-5.1); SODIUM 138 mmol/L (136-145)
[2017-07-01] MEDS ORDERED: OPTIRAY 320 IV PRN (10:00)
[2017-07-01] MEDS: LACTATED RINGER'S 1000ML 1,000 ML IV SCH (10:02)
[2017-07-01] MEDS ORDERED: ACETAMINOPHEN 325 MG TAB PO PRN (11:30)
[2017-07-01] MEDS: PIPERACILL/TAZOBAC IV 3.375 GM in DEXTROSE 5% 100ML 100 ML IV SCH ×2 (13:13→20:26)
[2017-07-01] MEDS: OXYCODONE/ACETAMINOPHEN 5-325 TAB PO PRN (16:57)
[2017-07-01] MEDS ORDERED: NURSING DECISION MEDICATION ORDER SCH (22:00)
[2017-07-02] MEDS: TRAMADOL HCL 50 MG TAB PO PRN ×3 (00:13→13:38)
[2017-07-02] MEDS: LACTATED RINGER'S 1000ML 1,000 ML IV SCH (00:14)
--- NOTE | 2017-07-02 02:06 | DIAGNOSTIC IMAGING REPORT ---
CT ABD/PELVIS IV AND ORAL CONT CLINICAL HISTORY: Right lower quadrant abdominal pain status post laparoscopic appendectomy. COMPARISON STUDY: 06/28/2017 TECHNIQUE: Following the IV administration of 91 mL of Optiray-320, CT scan of the abdomen and pelvis was performed from the lung bases to the proximal femurs. Images are reviewed in the axial, sagittal, and coronal planes. IV contrast was administered without complication. A dose lowering technique was utilized adhering to the principles of ALARA. CT DOSE: 327.99 mGy.cm FINDINGS: Lower chest: There are small bilateral pleural effusions. Since the prior study, the patient developed bibasal airspace opacities. These could be atelectatic or inflammatory. Liver: The contrast-enhanced liver is normal in size, contour, and attenuation. There is no intrahepatic biliary ductal dilatation. The hepatic veins and portal veins are patent. Gallbladder: Unremarkable. Spleen: Normal in size and attenuation. Pancreas: Unremarkable. Adrenal glands: Unremarkable. Kidneys: There is symmetric renal cortical enhancement. The kidneys are normal in size without hydronephrosis. Bowel: There are no transition zones indicate bowel obstruction. There are postsurgical changes of a recent appendectomy. There is a right lower quadrant surgical drain. There is infiltration of the soft tissues adjacent to the appendectomy site involving the pericecal and distal ileal regions. There are no walled off collections to indicate a drainable abscess. The infiltrate/thickened soft tissues could be either inflammatory or secondary to postsurgical hemorrhage. Peritoneum: There is minimal free intraperitoneal air in keeping with the history of recent surgery and the indwelling surgical drain. Vasculature: The abdominal aorta is normal in course and caliber. Adenopathy: None. Pelvic viscera: The bladder is distended. Skeletal structures: No destructive osseous lesions are seen. IMPRESSION: 1. Interval appendectomy 2. Right lower quadrant surgical drain 3. Trace free intraperitoneal air likely postsurgical 4. Infiltration of the soft tissues adjacent to the appendectomy site. This could be either be inflammatory or secondary to postsurgical hemorrhage. There are no walled off collections to indicate a drainable abscess 5. Interval involvement of small bilateral pleural effusions and bibasal airspace opacities Electronically signed by: Kenton Ardon M.D. 07/01/2017 9:58 AM Dictated Date/Time: 07/01/2017 9:50 AM
[2017-07-02] MEDS: PIPERACILL/TAZOBAC IV 3.375 GM in DEXTROSE 5% 100ML 100 ML IV SCH (04:33)
--- NOTE | 2017-07-02 07:49 | Surgery Progress Note ---
Surgery Progress Note Date of Service Jul 02, 2017. Subjective Post OP Day: 4 + ambulating, + pain controlled, + diet (regular) Objective Vital Signs: Date Time Temp Pulse Resp B/P (MAP) Pulse Ox O2 Delivery O2 Flow Rate FiO2 07/02/17 00:15 Room Air 07/01/17 23:00 36.9 63 16 94/65 (75) 96 Room Air 07/01/17 20:44 37.0 07/01/17 18:05 37.9 07/01/17 16:53 Room Air 07/01/17 15:18 38.4 101 16 100/67 (78) 97 Room Air 07/01/17 08:00 Room Air Physical Exam: COLTON drainage (50 past 24 hrs, 5 overnight) Abdomen: soft Laboratory Results: Microbiology Results 07/01/17 Blood Culture, Received Pending 07/01/17 Blood Culture, Received Pending Assessment & Plan s/p lap appy CT did not show anything intraabdominal to cause fever, likely from atelectasis will d/c home on po abx will remove drain in office next week seen with Dr. Zhang
[2017-07-02 08:08] VITALS: BP 97/60; PULSE 95; TEMP 37.8; O2SAT 98
[2017-07-02 08:22] VITALS: BP 97/60; PULSE 95; TEMP 37.8; O2SAT 98
--- NOTE | 2017-07-02 11:25 | DISCHARGE SUMMARY ---
PRIMARY DISCHARGE DIAGNOSIS: 1. Acute appendicitis. 2. Postoperative anemia (blood loss). PROCEDURE PERFORMED: Laparoscopic appendectomy. 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 Her white count was 19,000. Ultrasound was consistent with appendicitis. She was taken to the operating room that afternoon for laparoscopic appendectomy. There was some drainage from the appendix. A Jameel drain was left in place. She was then transferred to the surgical floor and kept on IV Zosyn postoperatively. Her white count normalized over the next 2 days. Her hemoglobin did drop on postoperative day #1 from 14 to 10. Her H&H remained stable over the next several days around 8 and 25. Her blood pressure was stable compared to preop. She was able to tolerate an advancing diet. She was not increasing activity very quickly. She did have some low grade temperatures, but her white count remained normal. Repeat CT was obtained on postoperative day #3 and showed some infiltration near the cecum consistent with small post-op bleed. She had some atelectasis and small bilateral pleural effusions. Jameel drainage remained serosanguineous, was about 50 mL in over 24 hours. On postoperative day #4, she was tolerating diet and oral analgesics. Her abdomen was soft. Incisions were benign. She was stable for discharge on oral antibiotics. DISCHARGE INSTRUCTIONS: Discharge home with her family. She will be returning to [facility] for the next few days. She will follow up in the office on Saturday for removal of the drain. DISCHARGE MEDICATIONS: Percocet 1-2 tablets every 4 hours as needed and Augmentin 875 mg p.o. b.i.d. x5. MTDD
[2017-07-02] MEDS ORDERED: NURSING DECISION MEDICATION ORDER SCH (12:00)
[2017-07-02] MEDS ORDERED: COUGH DROP (SUGAR FREE) LOZ 24 LOZ/1 BOX LOZ ONE (12:13)
[2017-07-02] MEDS ORDERED: COUGH DROP (SUGAR FREE) LOZ 24 LOZ/1 BOX LOZ PRN (12:45)
== END 2017-07-02 14:32 | disposition home or self-care (01) | DRG 342 ==
LOC: C.EDB 10:02 → EEVIPCON 18:28 → C.MSW 18:28 → ENRESERV 18:59 → OBSVTOIN 07-01 15:45
PROVIDERS: ADMIT Surgery; ATTEND Surgery
PROC: 0DTJ4ZZ Resection of Appendix, Percutaneous Endoscopic Approach (ICD-10-PCS; principal; 2017-06-28 10:30)
DX: K35.80 Unspecified acute appendicitis (principal); D62 Acute posthemorrhagic anemia; K91.840 Postprocedural hemorrhage of a digestive system organ or structure following a digestive system procedure; R50.9 Fever, unspecified; Z91.013 Allergy to seafood